=== PATIENT | male | born 1995 | race Two or more races ===

== ENCOUNTER 2023-03-23 09:37 | Emergency (ER) | payer OTHER ==
[~2023-03-23] VITALS: Ht 188 cm; Wt 97.5 kg
[2023-03-23] MEDS ORDERED: KETOROLAC TROMETHAMINE INJ 60 MG/2 ML VIAL IM ONE ×2 (09:58→10:00)
[2023-03-23] MEDS ORDERED: KETO10TA2 PO (11:12)
[2023-03-23 11:27] VITALS: BP 115/72; TEMP 98.7; O2SAT 100
== END 2023-03-23 11:23 | disposition home or self-care (01) ==
LOC: ER 09:42
DX: M25.532 Pain in left wrist (principal); M25.512 Pain in left shoulder; M25.522 Pain in left elbow; Z60.2 Problems related to living alone; W18.30XA Fall on same level, unspecified, initial encounter; Y93.51 Activity, roller skating (inline) and skateboarding; Y92.89 Other specified places as the place of occurrence of the external cause; Y99.8 Other external cause status
CPT/HCPCS: 29125; 73030; 73080; 73110; 96372; 99284; J1885

== ENCOUNTER 2024-11-05 00:14 | Emergency (ER) | payer OTHER ==
[~2024-11-05] VITALS: Ht 188 cm; Wt 108.9 kg
[~2024-11-05 00:14] MED LIST: KETO10TA2 PO
[2024-11-05] MEDS ORDERED: AMOX-430 PO (01:45)
[2024-11-05 03:40] VITALS: BP 130/71; TEMP 98.3; O2SAT 97
== END 2024-11-05 03:41 | disposition home or self-care (01) ==
LOC: ER 00:28
DX: S61.432A Puncture wound without foreign body of left hand, initial encounter (principal); Z60.2 Problems related to living alone; X58.XXXA Exposure to other specified factors, initial encounter; Y93.89 Activity, other specified; Y92.098 Other place in other non-institutional residence as the place of occurrence of the external cause; Y99.8 Other external cause status
CPT/HCPCS: 99283; A6403